=== PATIENT | female | born 1955 | race Caucasian/White ===

== ENCOUNTER → 2023-09-22 06:50 | Outpatient (REF) | payer MEDICARE, OTHER, SELFPAY ==
[2023-09-22 08:52] LABS: Glycohemoglobin (HgbA1c) 6.3 % (4.0-5.6)
[2023-09-22 09:03] LABS: HDL Cholesterol 62 mg/dl; LDL Cholesterol, Calculated 61 mg/dl; Total Cholesterol 140 mg/dl (50-199); Triglyceride 87 mg/dl (10-149); Very Low Density Lipoprotein 17 mg/dl (0-30)
[2023-09-22 09:07] LABS: Free T4 1.24 ng/dl (0.78-2.19)
[2023-09-22 09:22] LABS: TSH 3.98 uIU/ml (0.47-4.68)
== END ==
LOC: REG 06:50
PROVIDERS: ATTENDING PHYSICIAN Psychiatry & Neurology Geriatric Psychiatry
DX: E11.65 Type 2 diabetes mellitus with hyperglycemia (principal); E03.9 Hypothyroidism, unspecified; E78.2 Mixed hyperlipidemia
CPT/HCPCS: 36415; 80061; 83036; 84439; 84443